=== PATIENT | female | born 1945 | race Caucasian/White ===

== ENCOUNTER 2020-10-06 18:30 | Emergency (ER) | payer MEDICARE, SELFPAY ==
--- NOTE | ~2020-10-06 | CT_ITS ---
EXAMINATION: CT HEAD WITHOUT CONTRAST CLINICAL INFORMATION: Near syncope. COMPARISON: None. TECHNIQUE: Contiguous axial imaging was performed from the skull base to vertex without intravenous administration of contrast. Coronal and sagittal reformatted images are performed at the CT scanner. [This CT examination was performed using dose optimization techniques as appropriate, variously including the following: *Automated exposure control *Adjustment of mA and/or kV according to patient size (this includes techniques or standardized protocols for targeted exams where dose is matched to indication/reason for exam; i.e. extremities or head) *Use of iterative reconstruction technique] DLP: 727 mGy-cm. FINDINGS: There is no evidence of acute intracranial hemorrhage or territorial infarction. No abnormal mass-effect or midline shift is seen. [place] to white matter differentiation is well preserved. No extra-axial fluid collections are identified. The ventricles are normal in size. There is no abnormal attenuation within the brain parenchyma. There is no osseous abnormality. The mastoid air cells and visualized portions of the paranasal sinuses are well-aerated. CT/CT head/brain wo con IMPRESSION: No acute intracranial pathology.
[2020-10-06 18:42] VITALS: BP 123/51; PULSE 87; RESP 16; TEMP 36.5; O2SAT 98; BMI 29.4
--- NOTE | 2020-10-06 18:56 | ECG_ITS ---
Test Reason : NAUSEA/VOMOTING Blood Pressure : / mmHG Vent. Rate : 082 BPM Atrial Rate : 082 BPM P-R Int : 170 ms QRS Dur : 096 ms QT Int : 392 ms P-R-T Axes : 068 002 048 degrees QTc Int : 457 ms Normal sinus rhythm Normal ECG No previous ECGs available Referred By: Mason Olvera Electronically Signed By:Ricardo Chan
--- NOTE | 2020-10-06 18:59 | ED_ITS ---
HPI - General Adult General Chief complaint: Weakness Stated complaint: near syncope Time Seen by Provider: 10/06/20 18:44 Source: patient and EMS Mode of arrival: ambulatory Limitations: no limitations History of Present Illness HPI narrative: 75-year-old female brought emergency department for evaluation of near syncopal episode of after trying to move her bowels. The patient states that she started a liquid diet today. She states that all day she only drink water and had diet Coke, she has had no food. The patient states that she got home at around 5:00 p.m. and urinated. She then tried to move her bowels, She heard a loud noise in her ears, she became very weak as if she was going to pass out. The patient is speaking very softly and slowly. She answers questions appropriately. She denied headache, chest pain, shortness of breath, vomiting. She states that she does feel nauseated and did have diarrhea in the ambulance during transport. Related Data Allergies Allergy/AdvReac Type Severity Reaction Status Date / Time No Known Allergies Allergy Verified 10/06/20 18:55 Review of Systems Review of Systems: Yes all other systems are reviewed and are negative [facility] Past Medical History [facility] Narrative: Past medical history: Paroxysmal atrial tachycardia. Social history: The patient is . She denies tobacco, alcohol and drug use. Social History Social History Advance Directives: No Physical Exam Vital Signs: Vital Signs: Last Vital Signs Temp 97.6 F 10/06/20 21:55 Pulse 78 10/06/20 21:55 Resp 16 10/06/20 21:55 BP 115/49 L 10/06/20 21:55 Pulse Ox 96 10/06/20 21:55 Body Mass Index 29.4 Const: Other: Patient appears anxious, she is very soft smoking and she has slow speech, she does answer questions appropriately. HENMT: Head: Yes normal to inspection, Yes normocephalic and Yes atraumatic Ears: external ears normal General nose exam: Normal external nose present Face and sinus: Yes normal facial exam Mouth: Normal oral and palatal mucosa present Throat: Yes posterior oropharynx normal Eyes: Periorbital: periorbital findings normal Eyelids: Yes eyelids normal Conjunctivae: conjunctivae normal Sclerae: sclerae normal Corneas: corneas normal Pupils: Equal, round and reactive pupils present Direct Ophthalmoscopy: normal light reflex Neck: Neck: Yes full ROM, Yes no lymphadenopathy, Yes no meningeal signs, Yes trachea midline and Yes supple Chest: Chest palpation & inspection: normal inspection of the chest and normal palpation of entire chest wall Resp: Effort & Inspection: normal respiratory effort and able to speak in complete sentences Auscultation: clear to auscultation bilaterally Cardio: Rate: regular rate Rhythm: regular rhythm Heart sounds: S1 normal heart sound present, S2 normal heart sound present and no murmurs GI: Inspection: Yes normal to inspection Palpation (GI): Soft to palpation, nontender, no guarding, not rigid and No hepatosplenomegaly present : General: Yes no CVA tenderness Back/Spine/Pelvis: Back: no CVA tenderness Cervical Spine: normal cervical lordosis Thoracic/Lumbar Spine: thoracic and lumbar spine normal to inspect ion Skin: Lesions: no lesions Rashes: no rashes Wounds: no wounds Neuro: General: no meningeal signs Cranial nerves: Yes CN's II-XII intact bilaterally and Yes Equal, round and reactive pupils present Cognition (Neuro): normal cognition Motor exam (neuro): 5/5 motor strength present throughout Extrem: General: Yes normal to inspection and Yes full ROM Psych: Appearance: well kempt Mental Status: mental status grossly normal Speech and movement: Other speech and movement exam findings present (Psych) ( Slow speech pattern, soft voice) Affect: Anxious affect present Attitude: cooperative Thought process: Normal thought process present Thought content: Normal thought content present Course Course Course Narrative: 75-year-old female who started and to maintain fasting diet today and drink only water and diet soda who presents the emergency department for evaluation of a near syncopal episode that occurred while she was trying to move her bowels. Vital signs were normal. The patient's physical examination revealed that she was anxious, galloway very slow I saw speech otherwise exam was un remarkable. I ordered a CBC, a CMP, troponin, and lipase. She was ordered to get normal saline IV x1 L. She did receive Zofran 4 mg IV by the paramedics. I ordered Ativan 1 mg IV. I also ordered a CT scan of the brain to rule out bleed, stroke is the cause of her near syncope. 2210: Patient's laboratory evaluation revealed mild anemia with an H&H of 11.2 and 33.7. Comprehensive metabolic panel was unremarkable. High sensitivity troponin was below detectable limits. CT scan of the head revealed no acute process. Twelve EKG was unremarkable. Patient's syncopal episode is most likely secondary to being volume depleted and dehydrated from the patient's starting a liquid diet. I did discuss this with her. The patient will be discharged home. The patient was given verbal and printed instructions prior to discharge. The patient was advised to follow-up with their PCP in 2 days and to return to the emergency department if their symptoms get worse or if they develop any new symptoms that are concerning to them Medical Decision Making Lab Data Result diagrams: 10/06/20 19:11 10/06/20 19:11 Labs: Lab Results 10/06/20 10/06/20 10/06/20 Range/Units 19:11 19:11 19:11 WBC 7.4 (4.8-10.8) X10*3/uL RBC 3.69 L (4.20-5.50) X10*6/uL Hgb 11.2 L (12.0-16.0) g/dl Hct 33.7 L (37-47) % MCV 91.3 (80-98) fL MCH 30.4 (27.0-33.0) pg MCHC 33.2 (31.0-35.0) g/dl RDW 12.4 (11.0-16.0) % Plt Count 169 (160-400) X10*3/uL MPV 11.3 (9.4-12.3) fL Immature Gran % (Auto) 0.7 H (0.0-0.4) % Neut % (Auto) 79.1 H (45-73) % Lymph % (Auto) 14.2 L (20-40) % Ocean % (Auto) 5.6 (2-11) % Eos % (Auto) 0.1 (0-4) % Baso % (Auto) 0.3 (0-2) % Lymph # (Auto) 1.1 L (1.2-4.9) X10*3/uL Ocean # (Auto) 0.4 (0.1-1.2) X10*3/uL Eos # (Auto) 0.0 (0.0-0.4) X10*3/uL Baso # (Auto) 0.0 (0.0-0.2) X10*3/uL Abs Immat Gran (auto) 0.05 H (0.00-0.03) X10*3/uL Absolute Neuts (auto) 5.9 (2.0-8.3) X10*3/uL Absolute Nucleated RBC 0.000 (0.0-0.012) X10*3/uL Nucleated RBC % (auto) 0.0 (0.0-0.2) /100WBC Sodium 141 (135-145) mmol/L Potassium 3.9 (3.3-5.1) mmol/L Chloride 109 H (96-108) mmol/L Carbon Dioxide 20 L (22-29) mmol/L Anion Gap 16 (12-20) BUN 13 (9-16) mg/dL Creatinine 0.77 (0.5-1.4) mg/dL Estim Creat Clear Calc 67.1 Estimated GFR > 60 Random Glucose 167 H (60-115) mg/dL Calcium 9.1 (8.4-10.2) mg/dL Total Bilirubin 0.6 (0.0-1.0) mg/dL AST 18 (5-31) U/L ALT 17 (0-31) U/L Alkaline Phosphatase 65 (39-117) U/L Troponin I High Sens < 3.5 (<3.5-17.0) ng/L Total Protein 5.8 L (6.5-8.0) g/dL Albumin 3.8 (3.5-5.0) g/dL Lipase 23 (8-78) U/L ECG Data Attestation: I personally reviewed and interpreted this ECG as follows: Interpretation: 1949: Normal sinus rhythm rate of 82, normal [place], QRS duration and QTC interval, no ST segment elevation or depression, no PACs or PVCs, this is a normal EKG. Discharge Plan Discharge Clinical Impression: Acute dehydration Syncope Qualifiers: Encounter type: initial encounter Patient Disposition: Home, Self-Care Instructions: Syncope (ED) Additional Instructions: Your symptoms today are most likely caused by dehydration and malnutrition secondary to the liquid diet that you started today. You should stop the liquid diet and consult your doctor about losing weight in seeing a winemaker. Follow-up with your doctor in 2 days. Please return to the emergency department if your symptoms get worse or if you develop any symptoms that are concerning to you.
[2020-10-06 19:15] LABS: MANUAL DIFF FLAG NO
[2020-10-06 19:17] LABS: Basophils Percent Auto 0.3 % (0-2); Eosinophils Percent Auto 0.1 % (0-4); Hematocrit 33.7 % (37-47); Hemoglobin 11.2 g/dl (12.0-16.0); Imm Gran Abs Auto 0.05 X10*3/uL (0.00-0.03); Imm Gran Pct Auto 0.7 % (0.0-0.4); Lymphocytes Absolute Auto 1.1 X10*3/uL (1.2-4.9); Lymphocytes Percent Auto 14.2 % (20-40); Mean Corpuscular HGB Conc 33.2 g/dl (31.0-35.0); Mean Corpuscular Hemoglobin 30.4 pg (27.0-33.0); Mean Corpuscular Volume 91.3 fL (80-98); Mean Platelet Volume 11.3 fL (9.4-12.3); Monocytes Absolute Auto 0.4 X10*3/uL (0.1-1.2); Monocytes Percent Auto 5.6 % (2-11); Neutrophils Absolute Auto 5.9 X10*3/uL (2.0-8.3); Neutrophils Percent Auto 79.1 % (45-73); Platelet Count 169 X10*3/uL (160-400); Red Blood Count 3.69 X10*6/uL (4.20-5.50); Red Cell Distribution Width 12.4 % (11.0-16.0); White Blood Count 7.4 X10*3/uL (4.8-10.8)
[2020-10-06] MEDS: LORazepam 2 MG/ML VIAL 1 MG IVPUSH (19:18)
[2020-10-06] MEDS: 0.9 % Sodium Chloride 1,000 ML 999 ML IV (19:19)
[2020-10-06 19:46] LABS: Alanine Aminotransferase 17 U/L (0-31); Albumin Level 3.8 g/dL (3.5-5.0); Alkaline Phosphatase 65 U/L (39-117); Anion Gap 16 (12-20); Aspartate Amino Transferase 18 U/L (5-31); Bilirubin Total 0.6 mg/dL (0.0-1.0); Blood Urea Nitrogen 13 mg/dL (9-16); Calcium 9.1 mg/dL (8.4-10.2); Carbon Dioxide 20 mmol/L (22-29); Chloride 109 mmol/L (96-108); Creatinine Clr Calc Pharmacy 67.1; Estimated Glomerular Filt Rate > 60; Glucose Random 167 mg/dL (60-115); Lipase 23 U/L (8-78); Potassium 3.9 mmol/L (3.3-5.1); Sodium 141 mmol/L (135-145); Total Protein 5.8 g/dL (6.5-8.0)
[2020-10-06 19:49] LABS: Troponin-I High Sensitivity < 3.5 ng/L (<3.5-17.0)
[2020-10-06 19:50] VITALS: BP 119/52; PULSE 77; RESP 16; TEMP 36.6; O2SAT 95
--- NOTE | 2020-10-06 19:52 | PC.NURSE ---
PATIENT CAME IN INCONTINENT OF [facility] ,PATIENT WAS CLEAN UP BY THIS PCT AND CHANGE INTO HOSPITAL ATTIRE .
[2020-10-06 21:55] VITALS: BP 115/49; PULSE 78; RESP 16; TEMP 36.4; O2SAT 96
--- NOTE | 2020-10-06 22:20 | PC.NURSE ---
PATIENT WAS ASSISTED ON BEDPAN BY THIS PCT .
== END 2020-10-06 22:52 | disposition home or self-care (01) ==
PROVIDERS: Emergency Provider Emergency Medicine Emergency Medical Services
DX: E86.0 Dehydration (principal); R55 Syncope and collapse; I47.1 Supraventricular tachycardia; D64.9 Anemia, unspecified
CPT/HCPCS: 36415; 70450; 80053; 83690; 84484; 85025; 93005; 96361; 96374; 99284; J2060

== ENCOUNTER 2022-03-29 14:00 | Outpatient (RCR) | payer MEDICARE, SELFPAY | END 2022-03-29 15:29 | disposition home or self-care (01) | LOC: HO.PT 14:00 | PROVIDERS: PCP Nurse Practitioner Family; Visit Provider Obstetrics & Gynecology | DX: R39.89 Other symptoms and signs involving the genitourinary system (principal) | CPT/HCPCS: 97110; 97112; 97140; 97161 ==